=== PATIENT | female | born 1945 | race American Indian/Alaskan Native ===

== ENCOUNTER 2021-11-14 14:49 | Emergency (ER) | payer MEDICARE ==
[2021-11-14 15:46] VITALS: BP 175/67
--- NOTE | 2021-11-15 09:31 | Electrocardiograph Report ---
[facility] Test Date: 2021-11-14 Test Time: 16:02:28 Pat Name: SAKINA DUMAS Department: Room: Gender: F [employer] Operator: LIN : 1945 Requested By: MALIA MACHADO Order Number: [id number] Reading MD: Marquez Pradhan Measurements Intervals [place] Rate: 99 P: 70 MD: 138 QRS: 79 QRSD: 66 T: 65 QT: 314 QTc: 404 Interpretive Statements Sinus rhythm Probable left atrial enlargement Probable left ventricular hypertrophy No previous ECG available for comparison Electronically Signed On 11-15-2021 9:31:05 EDT by Marquez Pradhan
== END 2021-11-14 22:53 | disposition left against medical advice (07) ==
LOC: ED 14:49
DX: R05.9 Cough, unspecified (principal); R11.10 Vomiting, unspecified; Z53.21 Procedure and treatment not carried out due to patient leaving prior to being seen by health care provider
CPT/HCPCS: 93005